=== PATIENT | male | born 1970 | race Caucasian/White ===

== ENCOUNTER 2022-01-19 11:50 | Emergency (ER) | payer OTHER ==
[~2022-01-19] VITALS: Ht 188 cm; Wt 88.6 kg
--- NOTE | 2022-01-19 12:10 | PHYS DOC ---
General Adult EDM: Chief Complaint: DIZZY/LIGHT HEADED HPI: HPI: Patient is a 51-year-old male who presents to the emergency department for dizziness and near syncope. Patient reports that he went for a 5 mile run this morning around 6 AM and came home and started cleaning the house and ate breakfast. He reports that he felt like he was staying hydrated during his run. Around 1015 he started to become lightheaded. His lightheadedness is worse with position changes and when he does change positions he feels like the room is spinning. Patient denies any chest pain, shortness of breath, nausea, vomiting. He reports that he had an episode similar to this in 2006. Review of Systems: Review of Systems: Constitutional: Denies fever or chills Eyes: Denies photophobia or vision changes Respiratory: See HPI, denies cough Cardiovascular: See HPI GI: See HPI Musculoskeletal: Reports chronic arthritic pain Neurologic: See HPI Current Medications: Current Meds: Current Medications Medications (Trade) Dose Ordered Sig/Krishna Start Time Stop Time Status Last Admin Dose Admin Sodium Chloride 1,000 ml @ 1,000 mls/hr 1X ONCE 01/19/22 12:15 01/19/22 13:14 UNV Physical Exam: PE: Constitutional: Well developed, well nourished, no acute distress, non-toxic appearance. [] HENT: Normocephalic, atraumatic, bilateral external ears normal, oropharynx moist, no oral exudates, nose normal. [] Eyes: PERRL, 4 mm bilaterally, no nystagmus, EOMI, conjunctiva normal, no discharge. [] Neck: Normal range of motion, no tenderness, supple, no stridor. [] Cardiovascular:Heart rate bradycardic to regular rhythm, no murmur [] Lungs & Thorax: Bilateral breath sounds clear to auscultation [] Abdomen: Bowel sounds normal, soft, no tenderness, no masses, no pulsatile masses. [] Skin: Warm, dry, no erythema, no rash. [] Back: No tenderness, normal range of motion Extremities: No tenderness, no cyanosis, no clubbing, ROM intact, no edema. [] Neurologic: Alert and oriented X 3, normal motor function, normal sensory function, no focal deficits noted, no pronator drift, patient moving all 4 extremities equally, no limb ataxia, no speech changes. [] Psychologic: Affect normal, judgement normal, mood normal. [] Current Patient Data: Labs: Laboratory Tests Test 01/19/22 12:10 White Blood Count 8.7 x10^3/uL Red Blood Count 4.49 x10^6/uL Hemoglobin 14.1 g/dL Hematocrit 40.7 % Mean Corpuscular Volume 91 fL Mean Corpuscular Hemoglobin 31 pg Mean Corpuscular Hemoglobin Concent 35 g/dL Red Cell Distribution Width 12.3 % Platelet Count 188 x10^3/uL Neutrophils (%) (Auto) 82 % Lymphocytes (%) (Auto) 11 % Monocytes (%) (Auto) 6 % Eosinophils (%) (Auto) 1 % Basophils (%) (Auto) 0 % Neutrophils # (Auto) 7.2 x10^3uL Lymphocytes # (Auto) 0.9 x10^3/uL Monocytes # (Auto) 0.5 x10^3/uL Eosinophils # (Auto) 0.1 x10^3/uL Basophils # (Auto) 0.0 x10^3/uL Sodium Level 140 mmol/L Potassium Level 3.5 mmol/L Chloride Level 106 mmol/L Carbon Dioxide Level 25 mmol/L Anion Gap 9 Blood Urea Nitrogen 15 mg/dL Creatinine 0.8 mg/dL Estimated GFR (Cockcroft-Gault) 101.1 BUN/Creatinine Ratio 19 Glucose Level 152 mg/dL Calcium Level 8.7 mg/dL Total Bilirubin 0.7 mg/dL Aspartate Amino Transf (AST/SGOT) 40 U/L Alanine Aminotransferase (ALT/SGPT) 51 U/L Alkaline Phosphatase 49 U/L Troponin I High Sensitivity 12 ng/L Total Protein 5.7 g/dL Albumin 3.3 g/dL Albumin/Globulin Ratio 1.4 Current Medications Medications (Trade) Dose Ordered Sig/Krishna Route PRN Reason Start Time Stop Time Status Last Admin Dose Admin Sodium Chloride 1,000 ml @ 1,000 mls/hr 1X ONCE IV 01/19/22 12:15 01/19/22 13:14 DC 01/19/22 12:30 EKG: EKG: EKG performed by ER staff at 1152 shows sinus rhythm with a rate of 51, no STEMI read by Dr. Iniguez [] Radiology/Procedures: Radiology/Procedures: []PROCEDURE: PORTABLE CHEST 1V AP chest. HISTORY: Short of air, near syncope AP view was taken of the chest. Lungs are clear. Heart is normal in size. There is no pleural effusion. IMPRESSION: 1. No acute infiltrates. Electronically signed by: Gunnar Dalton MD (01/19/2022 12:46 PM) [facility] DICTATED AND SIGNED BY: GUNNAR DALTON MD DATE: 01/19/22 1246 CC: TEAEAN Ciara BUSINESS INFO CONSULTANT ~ Heart Score: C/O Chest Pain: No Risk Factors: Risk Factors: DM, Current or recent (<one month) smoker, HTN, HLP, family history of CAD, obesity. Risk Scores: Score 0 - 3: 2.5% MACE over next 6 weeks - Discharge Home Score 4 - 6: 20.3% MACE over next 6 weeks - Admit for Clinical Observation Score 7 - 10: 72.7% MACE over next 6 weeks - Early Invasive Strategies Course & Med Decision Making: Course & Med Decision Making Pertinent Labs and Imaging studies reviewed. (See chart for details) [] Patient presents to the emergency department for lightheadedness that is worse with position changes. Patient also went on a 5 mile run this morning around 6 AM. Patient is bradycardic in the emergency department with a heart rate of 49-55. Patient reports that his baseline heart rate is typically 60 bpm. Patient is likely experiencing orthostatic hypotension. Work-up in the ER consisted of blood work including troponin, EKG, chest x-ray. Patient treated with IV fluids. Patient does have a normal neurological exam and denies any injury or syncope. Patient's lab work is unremarkable, negative troponin. Chest x-ray is unremarkable. Normal EKG. Following treatment in the emergency department with IV fluids, patient reports that his symptoms have greatly proved. Patient was road tested in the emergency department []. Likely cause of his orthostatic hypotension due to dehydration. Advised to follow-up push oral intake. I discussed with patient all findings and diagnostic testing as well as the need to follow-up with PCP for further evaluation and treatment or return to the ER if any new or worsening symptoms. Strict return precautions were also discussed at length. Patient voiced understanding and agreement with the plan. Patient is hemodynamically stable at the time of disposition. Dragon Disclaimer: Dragon Disclaimer: This electronic medical record was generated, in whole or in part, using a voice recognition dictation system. Departure Departure: Impression: Primary Impression: Orthostatic lightheadedness Disposition: HOME / SELF CARE / HOMELESS Condition: GOOD Patient Instructions: Orthostatic Hypotension Additional Instructions: You are seen in the emergency department today for lightheadedness. This is possibly due to something called orthostatic hypotension due to dehydration. Please make sure that you increase your fluids at home. Slowly change positions. Follow-up with your primary care provider tomorrow regarding your ER visit. Avoid exertion. Return to the emergency department if you develop near-syncope/syncope, chest pain, shortness of breath, intractable nausea or any new or worsening concerns. EAN METCALF BUSINESS INFO CONSULTANT January 19, 2022 12:10
[2022-01-19] MEDS ORDERED: IV NORMAL SALINE 1,000ML 1,000 ML IV ONE (12:15)
[2022-01-19 12:39] LABS: BASO % 0 % (0-3); EOS # 0.1 x10^3/uL (0.0-0.7); EOS % 1 % (0-3); HEMATOCRIT 40.7 % (39.0-53.0); HEMOGLOBIN 14.1 g/dL (13.0-17.5); LYMPH # 0.9 x10^3/uL (1.0-4.8); LYMPH % 11 % (24-48); MEAN CORPUSCULAR HEMOGLOBIN 31 pg (25-35); MEAN CORPUSCULAR HGB CONC 35 g/dL (31-37); MEAN CORPUSCULAR VOLUME 91 fL (79-100); MONO # 0.5 x10^3/uL (0.0-1.1); MONO % 6 % (0-9); NEUT # 7.2 x10^3uL (1.8-7.7); NEUT % 82 % (31-73); PLATELET COUNT 188 x10^3/uL (140-400); RED BLOOD COUNT 4.49 x10^6/uL (4.30-5.70); RED CELL DISTRIBUTION WIDTH 12.3 % (11.5-14.5); WHITE BLOOD COUNT 8.7 x10^3/uL (4.0-11.0)
--- NOTE | 2022-01-19 12:49 | RAD ---
AP chest. HISTORY: Short of air, near syncope AP view was taken of the chest. Lungs are clear. Heart is normal in size. There is no pleural effusio n. IMPRESSION: 1. No acute infiltrates. Electronically signed by: Gunnar Lopez MD (01/19/2022 12:46 PM) [facility]
[2022-01-19 12:53] LABS: CALCIUM 8.7 mg/dL (8.5-10.1); CREATININE 0.8 mg/dL (0.7-1.3); GFR 101.1; POTASSIUM 3.5 mmol/L (3.5-5.1)
[2022-01-19 12:58] LABS: ALBUMIN 3.3 g/dL (3.4-5.0); ALBUMIN/GLOBULIN RATIO 1.4 (1.0-1.7); TOTAL BILIRUBIN 0.7 mg/dL (0.2-1.0); TOTAL PROTEIN 5.7 g/dL (6.4-8.2)
[2022-01-19 14:00] VITALS: BP 127/77
== END 2022-01-19 14:34 | disposition home or self-care (01) ==
LOC: ER 11:50
DX: R42 Dizziness and giddiness (principal); R55 Syncope and collapse
CPT/HCPCS: 36415; 71045; 80053; 84484; 85025; 93005; 96360; 99285; J7030